=== PATIENT | male | born 1955 | race Caucasian/White ===

== ENCOUNTER 2016-09-23 07:10 | Day surgery (SDC) | payer OTHER ==
[~2016-09-23] VITALS: Ht 165.1 cm; Wt 67.8 kg
[2016-09-23] VITALS (12 sets, daily range): BP systolic 104–149; BP diastolic 69–88; PULSE 71–90; RESP 14–20; Ht 165.1 cm; Wt 67.8 kg
[~2016-09-23 07:10] MED LIST: CEFAZOLIN 2 GM/50 ML (PMX) 50 ML IVPB ONE; SOD CHLORIDE 0.9% 1,000 ML IV SCH
[2016-09-23] MEDS ORDERED: CALC60OI3 TOP (08:32)
[2016-09-23] MEDS ORDERED: HYDR-3010 PO (08:32)
[2016-09-23] MEDS ORDERED: FLUO120C4 TOP (08:32)
[2016-09-23] MEDS ORDERED: IBUP-1542 PO (08:32)
[2016-09-23] MEDS ORDERED: BUPIVACAINE 0.25% (MPF) 30 ML INJ ONE (09:24)
[2016-09-23] MEDS ORDERED: HYDROmorphONE (0.2 MG/ML) 10ML SYG IV PRN ×3 (10:00)
[2016-09-23] MEDS ORDERED: ONDANSETRON 4 MG INJ IV PRN (10:00)
[2016-09-23] MEDS ORDERED: DIPHENHYDRAMINE 50 MG INJ IV PRN (10:00)
[2016-09-23] MEDS ORDERED: MEPERIDINE 25 MG INJ IV PRN (10:00)
[2016-09-23] MEDS ORDERED: OXYCODONE/ACETAMINOPHEN (5/325) TAB PO PRN ×2 (10:00)
[2016-09-23] MEDS ORDERED: METOCLOPRAMIDE 10 MG INJ IV PRN (10:00)
--- NOTE | 2016-09-23 10:27 | OPR ---
Date/Time of Note Date/Time of Note DATE: 09/23/16 TIME: 10:26 Operative Report Procedure Date: Sep 23, 2016 Preoperative Diagnosis RIH Postoperative Diagnosis incarcerated RIH Operation Performed open incarcerated RIH repair with large ultrapro system mesh right ilioinguinal nerve block Surgeon: Carlos BARFIELD G. SEONG Sep 23, 2016 10:27
[2016-09-23] MEDS ORDERED: HYDROCODONE/APAP (5/325) TAB PO ONE (10:30)
--- NOTE | 2016-09-23 10:39 | OPR ---
DATE OF OPERATION: 09/23/2016 INDICATION: This is a 61-year-old male with a right inguinal hernia. He requests surgical repair. Risks, alternatives, benefits, and personnel were discussed with patient. The patient expressed un derstanding and consents to the operation. PREOPERATIVE DIAGNOSIS: Right inguinal hernia. POSTOPERATIVE DIAGNOSIS: Right inguinal hernia. OPERATION PERFORMED: 1. Open incarcerated right inguinal hernia repair with UltraPro Hernia System large mesh. 2. Right ilioinguinal nerve block. CPT code 55193. 3. Therapeutic injection of subcutaneous local anesthesia. CPT code 55176. SURGEON: Kadie Nicholson MD SPECIMEN: None. COMPLICATIONS: None. ANESTHESIA: General. DESCRIPTION OF PROCEDURE: The patient was taken to the OR and prepped and draped in the usual ster ile fashion. Surgical timeout was performed. IV antibiotics given. Right inguinal oblique incisio n is made with a 10 blade. Dissection cautery was carried down to the external oblique fascia which was opened with a 15 blade. This incision is extended medial inferiorly and lateral superiorly wit h Metzenbaum scissors. Cord structures were identified and encircled with a Mckenzie drain. The inc arcerated hernia was reduced and reinforced with the disk portion of the UltraPro Hernia System mesh . This was secured in place with a running 0 Prolene from the pubic tubercle along the shelving edg e of the inguinal ligament and superiorly to the internal oblique. Onlay mesh is secured in place w ith a running 0 Prolene from the pubic tubercle along the shelving edge of the inguinal ligament. S traps were created and reapproximated with interrupted 0 Prolene to recreate the inguinal ring. Onl ay mesh was secured to the internal oblique with interrupted 3-0 Vicryl. External oblique fascia wa s closed with a running 3-0 Vicryl. Geam's fascia was closed with interrupted 3-0 Vicryl. Skin w as closed using skin mark. Local anesthesia was injected into the incision. A right ilioinguina l nerve block was then performed by identifying the position 2 cm medial and inferior to the ASIS, i n a fanning motion a right ilioinguinal nerve block was performed. Dry dressings were applied. Dictated By: KADIE NICHOLSON MD SB/YAMILA Conf#: [id number] [facility]#: [id number]
[2016-09-23] MEDS ORDERED: PROPOFOL 20 ML ONE (10:56)
[2016-09-23] MEDS ORDERED: ROCURONIUM 50 MG INJ ONE (10:56)
[2016-09-23] MEDS ORDERED: NEOSTIGMINE 3 MG/3 ML SYRINGE ONE (10:56)
[2016-09-23] MEDS ORDERED: GLYCOPYRROLATE 0.4 MG INJ ONE (10:56)
[2016-09-23] MEDS ORDERED: LIDOCAINE 2% JELLY 5 ML ONE (10:57)
[2016-09-23] MEDS ORDERED: MIDAZOLAM 1 MG/ML 2 ML INJ ONE (10:57)
[2016-09-23] MEDS ORDERED: ROPIVACAINE 0.2% 20 ML VIAL ONE (10:57)
[2016-09-23] MEDS ORDERED: KETOROLAC 30 MG INJ ONE (10:57)
[2016-09-23] MEDS ORDERED: METOCLOPRAMIDE 10 MG INJ ONE (10:57)
[2016-09-23] MEDS ORDERED: LIDOCAINE 100 MG SYRINGE ONE (10:57)
[2016-09-23] MEDS ORDERED: CEFAZOLIN 1 GM INJ ONE (10:59)
[2016-09-23] MEDS ORDERED: LIDOCAINE 2% (SDV) 5 ML INJ ONE (11:17)
== END 2016-09-23 12:10 | disposition home or self-care (01) ==
LOC: SDS 07:10
PROVIDERS: ATTEND Surgery
DX: K40.90 Unilateral inguinal hernia, without obstruction or gangrene, not specified as recurrent (principal)
CPT/HCPCS: 49505; C1781; J0690; J1885; J2175; J2250; J2710; J2765; J2795; Z7512; Z7610; J2001